=== PATIENT | female | born 1980 | race Hispanic/Latino ===

== ENCOUNTER 2020-07-22 00:26 | Emergency (ER) | payer OTHER ==
[2020-07-22] MEDS ORDERED: Sodium Chloride 0.9% 1,000 ML ONE (00:54)
[2020-07-22] MEDS ORDERED: Ketorolac Tromethamine 30 MG/ML VIAL ONE (00:54)
[2020-07-22] MEDS ORDERED: Prochlorperazine 10 MG/2 ML VIAL ONE (00:54)
[2020-07-22 01:11] LABS: #Eosinphils 0.3 thou/uL (0.0-0.7); #Lymphocytes 0.7 thou/uL (1.20-3.40); #Monocytes 0.5 thou/uL (0.11-0.59); #Neutrophils 8.3 thou/uL (1.40-6.50); %Basophils 0.2 % (0.0-1.0); %Eosinophils 2.8 % (0.0-10.0); %Lymphocytes 7.6 % (21.0-51.0); %Monocytes 5.3 % (0.0-10.0); %Neutrophils 84.1 % (42.0-75.0); Hemoglobin 12.8 g/dL (12.0-16.0); Mean Corpuscular HGB CONC 32.2 g/dL (32.0-36.0); Mean Corpuscular Hemoglobin 28.3 pg (27.0-31.0); Mean Platelet Volume 7.4 fL (7.4-10.4); Platelet Count 197 thou/uL (130-400); RBC Distribution Width 13.9 % (11.5-14.5); Red Blood Cell (RBC) Count 4.53 mill/uL (4.20-5.40); White Blood Cell (WBC) Count 9.8 thou/uL (4.8-10.8)
[2020-07-22 01:31] LABS: MONO NEGATIVE CONTROL ZONE White (Negative) (White); MONO POSITIVE CONTROL Pink Line (Positive) (PINK/RED); Mononucleosis NEGATIVE (NEGATIVE)
[2020-07-22 02:47] LABS: Bilirubin Small (Negative); Blood, Urine Negative (Negative); Glucose, Urine (Dipstick) Negative (Negative); Ketone, Urine 40 mg/dL (Negative); Leukocyte Negative (Negative); Nitrite Negative (Negative); Protein, Urine (Dipstick) Trace mg/dL (Neg-Trace)
[2020-07-22 02:50] LABS: Pregnancy Test - Urine (BHCG) Negative (Negative)
[2020-07-22 02:52] LABS: Specific Gravity 1.005 (1.002-1.036)
[2020-07-22 02:53] LABS: Pregu Control Background? CLEAR/WHITE (CLR/WHITE); Pregu Control Bar Appear? YES (CONTROL BAR)
[2020-07-22 02:54] LABS: Clarity Cloudy (Clear); Specific Gravity, Urine 1.005 (1.002-1.036)
[2020-07-22] MEDS ORDERED: Clindamycin/D5W 900 mg/50 ml Premix Bag ONE (03:42)
[2020-07-22] MEDS ORDERED: Sodium Chloride 0.9% 100 ML ONE (03:42)
[2020-07-22] MEDS ORDERED: Piperacillin/Tazobactam 4.5 GM VIAL ONE (03:42)
[2020-07-22 03:50] LABS: ALT (SGPT) 18 U/L (8-55); AST (SGOT) 18 U/L (5-34); Albumin 3.2 g/dL (3.5-5.0); Alkaline Phosphatase 120 U/L (40-110); Anion Gap 15 mmol/L (10-20); BUN (Urea Nitrogen) 8 mg/dL (7.0-18.7); Calc. Creatinine Clearance 0 mL/min (70-130); Calcium 7.9 mg/dL (7.8-10.44); Carbon Dioxide 21 mmol/L (22-29); Chloride 104 mmol/L (98-107); Globulin 3.1 g/dL (2.4-3.5); Glucose 143 mg/dL (70-105); Potassium 3.1 mmol/L (3.5-5.1); Protein, Total 6.3 g/dL (6.0-8.3); Sodium 137 mmol/L (136-145)
[2020-07-22] MEDS ORDERED: NS 0.9% w/ 20 MEQ KCL 1,000 ML ONE (03:59)
[2020-07-22] MEDS ORDERED: Sodium Chloride 0.9% 1,000 ML BAG ONE (07:48)
--- NOTE | 2020-07-22 08:44 | CT ---
PRELIMINARY REPORT/[facility]/EMERGENCY AFTER HOURS PROCEDURE Receipt of this report by the clinical staff was confirmed with Pham Narvaez RN by Jameson Miranda on Jul 22, 2020 02:41:00 FRUIT [employer]ADER. Addendum electronically signed by Wilma Miranda on July 22, 2020 2:42:09 AM FRUIT GRADER EXAM: CT Neck with Intravenous Contrast. CLINICAL HISTORY: SWELLING OF NECK BILATERALLY. TECHNIQUE: Axial computed tomography images of the neck with intravenous contrast. Sagittal and coronal reformat ions performed. CONTRAST: With; 90 ml ISOVUE 370 COMPARISON: None provided. FINDINGS: PHARYNX: The nasopharynx, oropharynx, and hypopharynx are unremarkable. No pharyngeal mucosal based mass lesio ns. LARYNX: The larynx is unremarkable. Normal epiglottis. RETROPHARYNGEAL SPACE: Retropharyngeal fluid collection present from C3-C6. There is diffuse lymphadenopathy and adjacent fa t stranding in the upper and mid neck and submandibular regions. No other fluid collections identified. SALIVARY GLANDS: The parotid, submandibular, and sublingual glands are unremarkable. LYMPH NODES: No lymphadenopathy. THYROID: The thyroid gland is unremarkable. No nodule. BONES: No acute osseous abnormality. IMPRESSION: Findings suggestive of retropharyngeal abscess that extends from C3-C6. No other abnormal fluid kate ections. Reactive lymphadenopathy and surrounding cellulitis bilateral neck and submandibular regions. ELECTRONICALLY SIGNED BY: Ciera Valdez MD Jul 22, 2020 2:35:44 AM FRUIT GRADER This report is intended for review by the ordering physician only, in accordance of law. If you recei ve this report in error, please call [facility] at [phone]. FINAL REPORT EXAM: CT NECK SOFT TISSUE POST CONTRAST: HISTORY:Worsening lymphadenopathy. COMPARISON:None CORRELATION:None FINDINGS: Brain parenchyma: No pathologic enhancement of the visualized brain parenchyma. Sinuses: Adequate aeration of the visualized paranasal sinuses and mastoid air cells. Orbits: Appropriate location of the ocular lenses. Symmetric attenuation the optic nerves and ocular rectus muscles. Retrobulbar fat is preserved. Nasopharynx:Adequate aeration. No mucosal abnormality. Oral cavity:Aerodigestive tract is patent. No mucosal abnormality. Limited evaluation of the oral cav ity due to dental amalgam artifact. Midline fatty raphae of the tongue is preserved. There is an expansile lesion involving the right mandible with the component involving the apex of the posterior- most right mandibular molar tooth. There is expansion of the osseous margins without evidence of destruction. Hypopharynx: No mucosal abnormality. Epiglottis has a normal caliber. Preepiglottic fat is preserved .. Larynx: No mucosal abnormality with regards to the supraglottic, glottic and subglottic larynx. Paraspinal muscles: Symmetric attenuation of the paraspinal muscles and symmetric attenuation of the sternocleidomastoid muscles. There is evidence of retropharyngeal fluid from C2-C6. Parotid and salivary glands: Symmetric attenuation of the parotid and submandibular glands Vessels: No significant stenosis. Technique limits evaluation. Thyroid gland: Unremarkable. Spine: Vertebral body height is maintained. No fracture. No significant central canal stenosis or sig nificant neural foraminal narrowing. Limited evaluation due to technique. Lymph nodes: There is extensive bilateral soft tissue neck lymphadenopathy. Enlarged right level 2 ly mph node measures 1.7 x 1.4 cm. Enlarged right level 5 lymph node measuring 1.4 x 1.1 cm. There is evidence of left neck lymphadenopathy. Enlarged left level 2 lymph node measures 1.7 x 1.2 cm. Lung apices and upper mediastinum: No acute abnormality. IMPRESSION: 1. This report is in agreement with initial report by [facility]. 2. Retropharyngeal abscess with reactive lymphadenopathy. 3. Not mentioned in the initial report by [facility] is a soft tissue mass involving the left m andible. Lesion may represent an odontogenic keratocyst. Nonemergent oral maxillofacial consultation is recommended. Results of study discussed with Dr. Manzanares on 07/22/2020 at 8:43 AM. Code CR Transcribed Date/Time: 07/22/2020 9:01 AM
--- NOTE | 2020-07-22 09:47 | CT ---
PRELIMINARY REPORT/[facility]/EMERGENCY AFTER HOURS PROCEDURE EXAM: CT Abdomen and Pelvis with Intravenous Contrast CLINICAL HISTORY: NAUSEA/VOMITTING TECHNIQUE: Axial computed tomography images of the abdomen and pelvis with intravenous contrast. CONTRAST: With; 90 ml ISOVUE 370 COMPARISON: None provided. FINDINGS: LUNG BASES: No basilar airspace consolidation or pleural effusion. LIVER: Unremarkable. GALLBLADDER AND BILE DUCTS: Unremarkable. No calcified stone. No ductal dilation. PANCREAS: Unremarkable. SPLEEN: Unremarkable. ADRENAL GLANDS: Unremarkable. KIDNEYS, URETERS, AND BLADDER: Unremarkable. No hydronephrosis or nephrolithiasis. No ureteral or bladder calculi. STOMACH AND BOWEL: Findings consistent with partial colectomy. Large amount of fecal material noted within the large bow el. Air-fluid levels noted in loops of small bowel in the right abdomen with fecal material in the distal small bowel segment in the mid abdomen. Remaining distal small bowel is nondistended. APPENDIX: No CT evidence for appendicitis. PERITONEUM: No free fluid. No free air. LYMPH NODES: No lymphadenopathy. REPRODUCTIVE: Unremarkable as visualized. VASCULATURE: No aortic aneurysm. BONES: No fracture or suspicious osseous abnormality. ABDOMINAL WALL AND SOFT TISSUES: Unremarkable. IMPRESSION: Findings suspicious for partial small bowel obstruction with transition point in the mid abdomen ELECTRONICALLY SIGNED BY: Ciera Valdez MD Jul 22, 2020 2:31:49 AM SUPERVISOR [employer]WORK This report is intended for review by the ordering physician only, in accordance of law. If you recei ve this report in error, please call [facility] at [phone]. FINAL REPORT Final report on overnight [facility]. I agree with the preliminary report. There are some flui d-filled loops of small bowel within the left mid and left upper quadrant of the abdomen that are not appreciably dilated to suggest partial small bowel obstruction. A mild enteritis could have a sim ilar appearance. There is postsurgical change of partial colectomy and colocolonic anastomosis within the lower abdomen. There is a mild to moderate amount retained stool within the visualized col on. No free fluid is evident. There is a hypodense lesion within the left adnexa most suspicious for follicular cyst. There is fatty infiltration of the liver. The pancreas, adrenal glands, spleen a nd kidneys appear within normal limits. There is mild subsegmental volume loss within the left lung base. No acute osseous abnormality is evident. Transcribed Date/Time: 07/22/2020 9:57 AM
[2020-07-22] MEDS ORDERED: Iopamidol 370 76% 100 ML VIAL ONE ×2 (10:04→10:05)
== END 2020-07-22 04:49 | disposition short-term general hospital (02) ==
LOC: MADERS 00:26
DX: J39.0 Retropharyngeal and parapharyngeal abscess (principal); E87.6 Hypokalemia; K56.600 Partial intestinal obstruction, unspecified as to cause; K31.84 Gastroparesis; Z79.899 Other long term (current) drug therapy
CPT/HCPCS: 36415; 70491; 74178; 80053; 81003; 81025; 83605; 84443; 85025; 86308; 87040; 87081; 87086; 87430; 87804; 96361; 96365; 96367; 96375; J0780; J1885; J2543; J3480; J3490; J7050; Q9967